=== PATIENT | male | born 1965 | race African-American/Black ===

== ENCOUNTER 2021-06-29 15:31 | Inpatient (IN) | payer MEDICAID ==
[~2021-06-29] VITALS: Ht 177.8 cm; Wt 144.7 kg
[~2021-06-29 15:31] MED LIST: HYDR25TA; LISI5TAB; LOPHC2; METF500T
[2021-06-29] MEDS: IPRATROPIUM BROMIDE (0.02%) 0.5MG/2.5ML NEB HHN STA ×2 (16:20→17:20)
[2021-06-29] MEDS: ALBUTEROL (0.083%) 2.5MG/3ML NEB HHN STA ×2 (16:20→17:20)
[2021-06-29] MEDS ORDERED: SODIUM CHLORIDE 0.9% 1,000 ML IV ONE (16:30)
[2021-06-29] MEDS ORDERED: METHYLPREDNISOLONE SOD SUCC 125 MG/2 ML VIAL IV STA (16:40)
[2021-06-29 17:01] LABS: BASOPHILS % 0.7 % (0.0-2.0); EOSINOPHILS % 1.5 % (0.0-5.0); HEMATOCRIT. 37.4 % (42.0-52.0); HEMOGLOBIN. 12.6 g/dL (14.0-18.0); LYMPHOCYTES % 22.9 % (20.0-50.0); MEAN CORPUSCULAR HEMOGLOBIN 28.9 pg (28.0-32.0); MEAN CORPUSCULAR VOLUME 85.6 fL (80.0-94.0); MONOCYTES % 10.4 % (2.0-8.0); NEUTROPHILS % 64.5 % (40.0-76.0); PLATELET 151 x1000/uL (130-400); RED BLOOD CELL COUNT 4.37 mill/uL (4.7-6.1); RED CELL DISTRIBUTION WIDTH 16.4 % (11.6-14.6)
[2021-06-29 17:08] LABS: CHLORIDE 100 mEq/L (98-107)
[2021-06-29] MEDS ORDERED: DEXTROSE 50% WATER 50ML SYRINGE IV ONE (17:45)
[2021-06-29] MEDS ORDERED: SODIUM POLYSTYRENE SULFONATE 15 G/60 ML BOT PO ONE (17:45)
[2021-06-29] MEDS ORDERED: SODIUM BICARBONATE 8.4% 1 MEQ/ML 50ML SYR IV ONE (17:45)
[2021-06-29] MEDS ORDERED: CALCIUM CHLORIDE 1GM/10ML SYR IV ONE (17:45)
[2021-06-29] MEDS ORDERED: INSULIN REGULAR (HUMULIN R) 300UNITS/3ML VIAL IV ONE (17:45)
[2021-06-29 22:30] VITALS: BP 98/52
[2021-06-30 00:03] VITALS: BP 100/55
[2021-06-30] MEDS ORDERED: DEXTROSE 50% WATER 50ML SYRINGE IV PRN (01:45)
[2021-06-30] MEDS ORDERED: ONDANSETRON HCL 4MG/2ML INJ IV PRN (01:45)
[2021-06-30] MEDS ORDERED: SODIUM CHLORIDE 0.45% 1,000 ML IV SCH (01:45)
[2021-06-30 02:33] LABS: BASOPHILS % 0.1 % (0.0-2.0); HEMATOCRIT. 39.3 % (42.0-52.0); LYMPHOCYTES % 10.2 % (20.0-50.0); MEAN CORPUSCULAR VOLUME 84.8 fL (80.0-94.0); MEAN PLATELET VOLUME 9.6 fl (7.4-10.4); MONOCYTES % 0.8 % (2.0-8.0); NEUTROPHILS % 88.9 % (40.0-76.0); PLATELET 152 x1000/uL (130-400); RED BLOOD CELL COUNT 4.64 mill/uL (4.7-6.1); RED CELL DISTRIBUTION WIDTH 16.4 % (11.6-14.6)
[2021-06-30 02:37] LABS: CHLORIDE 100 mEq/L (98-107)
[2021-06-30 02:46] LABS: CREATINE KINASE 144 IU/L (39-308)
[2021-06-30 04:00] VITALS: BP 102/50
[2021-06-30] MEDS: BLOOD SUGAR DIAGNOSTIC STRIP TEST SCH ×4 (07:03→20:17)
[2021-06-30 08:00] VITALS: BP 103/56
[2021-06-30] MEDS: INSULIN LISPRO 100 UNITS/ML SUBCUT SCH ×4 (08:58→20:26)
[2021-06-30 10:26] LABS: T4 FREE 1.11 ng/dL (0.76-1.46)
[2021-06-30 12:00] VITALS: BP 101/56
[2021-06-30 15:13] LABS: CREATINE KINASE 124 IU/L (39-308)
[2021-06-30 15:14] LABS: CREATINE KINASE MB FRACTION 1.1 ng/mL (0.5-3.6)
[2021-06-30 16:00] VITALS: BP 91/56
[2021-06-30] MEDS: RIVAROXABAN 15 MG TABLET PO SCH (17:38)
[2021-06-30] MEDS: SODIUM CHLORIDE 0.9% 1,000 ML IV SCH (17:39)
[2021-06-30 20:00] VITALS: BP 90/57
[2021-06-30 23:44] LABS: CREATINE KINASE 141 IU/L (39-308)
[2021-06-30 23:45] LABS: CREATINE KINASE MB FRACTION < 1.0 ng/mL (0.5-3.6)
[2021-07-01] VITALS: BP 102/40
[2021-07-01 03:20] LABS: CLARITY URINE CLEAR (CLEAR); COLOR URINE YELLOW (YELLOW); KETONES URINE NEGATIVE (NEGATIVE); LEUKOCYTE ESTERASE URINE NEGATIVE (NEGATIVE); NITRITE URINE NEGATIVE (NEGATIVE); OCCULT BLOOD URINE NEGATIVE (NEGATIVE); PROTEIN URINE NEGATIVE (NEGATIVE); SPECIFIC GRAVITY URINE 1.019 (1.005-1.030); UROBILINOGEN URINE 0.2 E.U./dL (0.2-1.0)
[2021-07-01 04:00] VITALS: BP 92/41
[2021-07-01] MEDS: SODIUM CHLORIDE 0.9% 1,000 ML IV SCH (06:06)
[2021-07-01 06:17] LABS: BASOPHILS % 0.1 % (0.0-2.0); EOSINOPHILS % 0.1 % (0.0-5.0); HEMATOCRIT. 36.8 % (42.0-52.0); HEMOGLOBIN. 12.1 g/dL (14.0-18.0); LYMPHOCYTES % 9.8 % (20.0-50.0); MEAN CORPUSCULAR HEMOGLOBIN 28.3 pg (28.0-32.0); MEAN CORPUSCULAR VOLUME 85.9 fL (80.0-94.0); MEAN PLATELET VOLUME 9.8 fl (7.4-10.4); MONOCYTES % 10.1 % (2.0-8.0); NEUTROPHILS % 79.9 % (40.0-76.0); PLATELET 146 x1000/uL (130-400); RED BLOOD CELL COUNT 4.28 mill/uL (4.7-6.1); RED CELL DISTRIBUTION WIDTH 16.3 % (11.6-14.6)
[2021-07-01] MEDS: BLOOD SUGAR DIAGNOSTIC STRIP TEST SCH ×4 (06:29→21:39)
[2021-07-01 07:35] LABS: CHLORIDE 105 mEq/L (98-107)
[2021-07-01 07:45] LABS: CREATINE KINASE MB FRACTION 1.5 ng/mL (0.5-3.6); LDL CHOLESTEROL 68 mg/dL (5-100); PHOSPHORUS 4.8 mg/dL (2.5-4.9)
[2021-07-01 07:46] LABS: CREATINE KINASE 132 IU/L (39-308); HDL CHOLESTEROL 39 mg/dL (40-59)
[2021-07-01] MEDS: INSULIN LISPRO 100 UNITS/ML SUBCUT SCH ×4 (07:50→21:44)
[2021-07-01 08:00] VITALS: BP 116/66
[2021-07-01 11:19] LABS: *BARBITURATES SCREEN URINE NEGATIVE (NEGATIVE)
[2021-07-01 11:21] LABS: *AMPHETAMINES SCREEN URINE NEGATIVE (NEGATIVE); *BENZODIAZEPINES SCREEN URINE NEGATIVE (NEGATIVE); *COCAINE SCREEN URINE NEGATIVE (NEGATIVE); METHADONE URINE SCREEN NEGATIVE (NEGATIVE); OPIATES URINE SCREEN PRESUMTIVE POSITIVE (NEGATIVE); PHENCYCLIDINE URINE SCREEN NEGATIVE (NEGATIVE)
[2021-07-01 11:22] LABS: CANNABINOID URINE SCREEN NEGATIVE (NEGATIVE)
[2021-07-01 12:00] VITALS: BP 96/55
[2021-07-01] MEDS ORDERED: CEFTRIAXONE 1 G PREMIX 50 ML IV SCH (14:30)
[2021-07-01 16:00] VITALS: BP 115/65
[2021-07-01] MEDS: RIVAROXABAN 15 MG TABLET PO SCH (17:26)
[2021-07-01] MEDS: CEFTRIAXONE 1,000 MG in DEXTROSE 5% WATER 50 ML IV SCH (17:26)
[2021-07-01 20:00] VITALS: BP 103/61
[2021-07-01] MEDS: HEPARIN 5000 UNITS/ML VIAL SUBCUT SCH (21:40)
[2021-07-02] VITALS: BP 84/43
[2021-07-02] MEDS: SODIUM CHLORIDE 0.9% 1,000 ML IV SCH ×2 (00:05→15:36)
[2021-07-02 04:00] VITALS: BP 106/60
[2021-07-02] MEDS: BLOOD SUGAR DIAGNOSTIC STRIP TEST SCH ×3 (06:54→17:20)
[2021-07-02 06:55] LABS: BASOPHILS % 0.6 % (0.0-2.0); EOSINOPHILS % 0.8 % (0.0-5.0); HEMATOCRIT. 36.9 % (42.0-52.0); LYMPHOCYTES % 26.4 % (20.0-50.0); MEAN CORPUSCULAR HEMOGLOBIN 28.4 pg (28.0-32.0); MEAN CORPUSCULAR VOLUME 87.2 fL (80.0-94.0); MEAN PLATELET VOLUME 9.6 fl (7.4-10.4); MONOCYTES % 9.8 % (2.0-8.0); NEUTROPHILS % 62.4 % (40.0-76.0); PLATELET 130 x1000/uL (130-400); RED BLOOD CELL COUNT 4.23 mill/uL (4.7-6.1); RED CELL DISTRIBUTION WIDTH 16.7 % (11.6-14.6)
[2021-07-02 07:03] LABS: CHLORIDE 108 mEq/L (98-107)
[2021-07-02] MEDS: ACETAMINOPHEN 325MG TABLET PO PRN ×2 (07:33→15:34)
[2021-07-02 08:00] VITALS: BP 93/45
[2021-07-02] MEDS: HEPARIN 5000 UNITS/ML VIAL SUBCUT SCH (09:01)
[2021-07-02] MEDS: INSULIN LISPRO 100 UNITS/ML SUBCUT SCH ×3 (09:21→17:50)
[2021-07-02 11:48] VITALS: BP 90/47
[2021-07-02] MEDS: CEFTRIAXONE 1,000 MG in DEXTROSE 5% WATER 50 ML IV SCH (15:35)
[2021-07-02 15:54] VITALS: BP 103/55
[2021-07-02] MEDS ORDERED: COR3 MT (17:17)
[2021-07-02] MEDS ORDERED: LISI2.5T47 MT (17:17)
[2021-07-02] MEDS ORDERED: XAR15 PO (17:17)
[2021-07-02] MEDS: RIVAROXABAN 15 MG TABLET PO SCH (18:26)
[2021-07-02 20:30] VITALS: BP 111/57
== END 2021-07-02 21:25 | disposition home or self-care (01) | DRG 469 ==
LOC: ER 15:31 → 6WST 17:45 → ENRESERV 19:57
PROVIDERS: ADMIT Family Medicine; ATTEND Family Medicine
DX: N17.9 Acute kidney failure, unspecified (principal); I42.9 Cardiomyopathy, unspecified; I48.20 Chronic atrial fibrillation, unspecified; I50.20 Unspecified systolic (congestive) heart failure; I13.0 Hypertensive heart and chronic kidney disease with heart failure and stage 1 through stage 4 chronic kidney disease, or unspecified chronic kidney disease; E11.22 Type 2 diabetes mellitus with diabetic chronic kidney disease; D64.9 Anemia, unspecified; E87.5 Hyperkalemia; N18.2 Chronic kidney disease, stage 2 (mild); E66.9 Obesity, unspecified; E78.00 Pure hypercholesterolemia, unspecified; Z87.891 Personal history of nicotine dependence; Z95.810 Presence of automatic (implantable) cardiac defibrillator; Z88.6 Allergy status to analgesic agent; Z79.899 Other long term (current) drug therapy; Z79.84 Long term (current) use of oral hypoglycemic drugs; Z68.42 Body mass index [BMI] 45.0-49.9, adult; I25.2 Old myocardial infarction; Z79.01 Long term (current) use of anticoagulants
CPT/HCPCS: 36415; 71045; 76770; 80048; 80053; 80061; 80305; 81003; 82550; 82553; 82962; 83036; 83735; 83880; 83970; 84100; 84439; 84443; 84484; 85025; 85379; 93005; 93306; 93970; 94640; 99291; J0696; J1644; J1815; J2930; J3490; J7030; J7060